=== PATIENT | male | born 1955 | race Caucasian/White ===

== ENCOUNTER 2025-06-21 09:55 | Outpatient (AMB) | payer MEDICARE, SELFPAY ==
--- NOTE | 2025-06-21 10:05 | A.PHYSOV_ITS ---
Vital Signs 06/21/25 10:10 Height 5 ft 9 in Weight 175 lb BMI 25.8 Intake Visit Reasons: NPV VMA Ref- cervical radiculopathy Intake Note: Patient is a 69 year old female here today for cervical radiculopathy. X RAY done by [facility] stiff neck and headaces ice helps states that he has vertigo Allergies No Known Allergies Allergy (Verified 06/18/25 12:18) HPI Comments Details: History of Present Illness The patient is a 69 year old male presenting with neck and shoulder pain. He reports the onset of pain within the last year, which he describes as intermittent and feeling as though it goes from the front to the back. He initially believed it was a right shoulder issue, possibly related to the rotator cuff. The last episode of pain was about a week ago, and he rates his worst pain as no greater than a 5 out of 10, describing it as manageable but bothersome. He has not previously seen a physical therapist or chiropractor for these symptoms. Symptoms are exacerbated by long drives, typically after 5-6 hours. He also experiences increased neck pain and headaches in the morning, depending on his sleeping position. Associated symptoms include numbness in his right arm that occurs while walking; he typically walks about five miles a day. An X-ray arranged by his primary care physician, initially for the shoulder, incidentally revealed degenerative changes and possible fusion in his neck. 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 His mother had degenerative spine disease. I reviewed the referring provider's no prior to consultation. Pain Description - Onset and Timing: Started within the last year; intermittent, last episode a week ago. - Quality and Character: Sensation of pain going from the front straight through to the back. - Primary Location: Neck and right shoulder. - Severity: Rated as manageable, up to 5/10 at its worst. - Exacerbating Factors: Long drives of 5-6 hours, sleeping position (worse in the morning). - Associated Symptoms: Headaches, numbness in the right arm when walking. Results - Imaging: X-ray of the cervical spine (3 views) from March 26 revealed degenerative changes and possible fusion. - Imaging: An X-ray of the right shoulder was also completed on March 26. Review of Systems Narrative Review of Systems - Neurological: Reports intermittent headaches. Reports numbness in the right arm when walking. Denies numbness found on physical exam. - Musculoskeletal: Reports intermittent neck and right shoulder pain. Reports neck stiffness, which is worse in the morning. Reports hearing snapping and cracking in his neck. He has a history of limited bilateral elbow extension since childhood. Physical Exam Exam Exam: Physical Exam - Neck: No tenderness to palpation. Significant stiffness noted with rotation and lateral tilt. Negative Spurling's test bilaterally. - Shoulders: Tenderness to palpation on the medial aspect of the right shoulder; no tenderness on the left. No pain with forward flexion or abduction. Strength is 5/5 with internal and external rotation. - Upper Extremities: Strength is 5/5 with elbow flexion and extension. [employer] strength is 5/5 bilaterally. Sensation to light touch is intact and symmetric. Chronic limited elbow extension bilaterally secondary to childhood rheumatic fever. Tenderness to palpation over the right elbow. Vital Signs: BMI result Body Mass Index 25.8 Assessment & Plan Assessment & Plan (1) Cervical radiculopathy: Code(s): M54.12 - Radiculopathy, cervical region Category: Medical (2) Cervical spondylosis: Code(s): M47.812 - Spondylosis without myelopathy or radiculopathy, cervical region Category: Medical Plan Pain Management - Affect: The patient describes the pain as bothersome. - Analgesia: The patient is not currently taking anything for the pain. His pain at its worst is a 5/10. - Activities of Daily Living: Pain is triggered by long drives. He also experiences numbness in his right arm while walking, an activity he tries to do for five miles daily. - Aberrant Drug Related Behaviors: None noted. Plan Patient was informed and verbally consented to the use of an ambient scribe for clinic note documentation during this visit. 1. Cervicalgia And Cervical Spondylosis The patient's physical exam shows more evidence of a neck problem than a shoulder problem, including significant neck stiffness. The numbness in his arm while walking is also likely related to his neck. The plan is to start conservative management with a home exercise program, which will be provided via a handout. Exercises will focus on single-plane motions such as neck stretching, strengthening with shrugs, and postural exercises. A follow-up is scheduled in 6 weeks, after which an MRI of the cervical spine will be ordered. The MRI is the gold standard and is necessary to evaluate the discs, spinal cord, nerve roots, and extent of arthritis, as the x-ray provides limited information. 2. Right Shoulder Pain Although the patient initially suspected a shoulder problem, there is less objective evidence for this compared to his neck issues. The plan is to prioritize the workup for the neck. An MRI of the shoulder can be considered in the future if neck imaging is unrevealing and symptoms persist. 3. General Pain Management For symptomatic relief, massage therapy was discussed as a helpful option for the soft tissues. A natural anti-inflammatory supplement containing turmeric, curcumin, and black pepper was recommended. Oetk-mne-pxeohvi medications such as Tylenol or an anti-inflammatory can be used as needed. Discussion Notes I explained to the patient that while it is hard to be certain without active symptoms, my exam findings and his history suggest his neck is a more likely source of his pain than his shoulder. I informed him that his symptoms are likely part of a progressive, degenerative process with a possible hereditary link, as his mother had similar issues. I detailed the need to attempt conservative therapy, such as home exercises, for a period to meet insurance requirements for an MRI. I explained that an MRI is the gold standard test that will provide significantly more detail about the soft tissues, nerves, and spinal cord than his previous X-ray. We agreed to proceed with home exercises, follow up in five weeks, and then obtain a cervical spine MRI. I also advised that we should order one MRI at a time to avoid insurance denials. We also discussed adjunctive treatments including massage, turmeric supplements, and oodo-fvs-wcurrzl pain medications. Patient Instructions - Begin a home exercise program for your neck. You will be given a handout with instructions. - Your exercises should include gentle, straight-line neck stretches (forward/backward, [id number]), shoulder shrugs, and exercises to pull your shoulders back and improve posture. - Avoid rolling your neck in circles, as this may cause snapping and cracking. - You may find relief from massage therapy, which can help with muscle tightness. - Consider taking a turmeric supplement, which is a natural anti-inflammatory. - You can use aroe-myd-ovgulvj pain relievers like Tylenol or anti-inflammatory medicines (like ibuprofen or Aleve) if needed for pain. - Please schedule a follow-up appointment in five weeks to review your progress and to get an order for an MRI of your neck. Coding Level of Care Code Tele New Pt Level 4 (29425) Diagnoses Cervical radiculopathy M54.12 Cervical spondylosis M47.812
[2025-06-21 10:10] VITALS: BMI 25.8
== END 2025-06-21 10:33 | disposition home or self-care (01) ==
PROVIDERS: PCP Physician Assistant Medical; Visit Provider Physician Assistant
DX: M54.12 Radiculopathy, cervical region (principal); M47.812 Spondylosis without myelopathy or radiculopathy, cervical region
CPT/HCPCS: 99204

== ENCOUNTER → 2025-06-21 09:55 | Outpatient (BNVA) | payer MEDICARE, SELFPAY | PROVIDERS: PCP Physician Assistant Medical; Visit Provider Physician Assistant | DX: M54.12 Radiculopathy, cervical region (principal); M47.812 Spondylosis without myelopathy or radiculopathy, cervical region; R42 Dizziness and giddiness | CPT/HCPCS: 99202 ==